=== PATIENT | female | born 1945 | race Caucasian/White ===

== ENCOUNTER → 2019-03-26 | Outpatient (CLI) | payer MEDICARE ==
[~2019-03-26] MED LIST: ALPR0.5T PO; ASPI-515 PO; ASPI-650 PO; ATOR40TA78 PO; B&C/1TAB2 PO; CHOL2000 PO; CHOL200074 PO; CRAN500T2 PO; CYAN1TAB29 PO; GLUC15006 PO; INSU100C5 SQ-INSULIN; INSU100I32 IM; LANS30CA PO; LOSA1TAB19 PO; LOSA50TA14 PO; MAGN300C PO; MAGN400T36 PO; METO25TA91 PO; MULT-658 PO; NITR0.4T28 SL; OMEG-133 PO; OMEG-157 PO; OMEG1CAP23 PO; ST.300CA PO; TICA90TA PO; TURM538C PO; UBID100C24 PO; VITA1TAB68 PO; ZOLP10TA5 PO
== END | disposition home or self-care (01) ==
LOC: CVU 10:22
PROVIDERS: ATTEND Internal Medicine Cardiovascular Disease
DX: I65.23 Occlusion and stenosis of bilateral carotid arteries (principal); E78.5 Hyperlipidemia, unspecified; I10 Essential (primary) hypertension; E10.9 Type 1 diabetes mellitus without complications
CPT/HCPCS: 93880

== ENCOUNTER 2020-04-05 09:34 | Day surgery (SDC) | payer MEDICARE ==
[~2020-04-05] VITALS: Ht 157.5 cm; Wt 60.0 kg
[2020-04-05] MEDS ORDERED: SODIUM CHLORIDE 0.9% 1,000 ML IV SCH ×2 (09:44→12:44)
[2020-04-05] MEDS ORDERED: CLOPIDOGREL 75 MG TABLET PO ONE (10:00)
[2020-04-05 10:20] VITALS: BP 145/62
[2020-04-05] MEDS ORDERED: ISOS30TA8 PO (10:25)
[2020-04-05 10:26] LABS: BASOPHILS # (AUTO) 0.02 x10^3/uL (0-0.1); BASOPHILS % (AUTO) 0 % (0-1); EOSINOPHILS # (AUTO) 0.06 x10^3/uL (0-0.4); EOSINOPHILS % (AUTO) 1 % (1-7); LYMPHOCYTES % (AUTO) 19 % (22-44); MD NO; MEAN CORPUSCULAR HEMOGLOBIN 33.4 pg (27.0-34.8); MEAN CORPUSCULAR HGB CONC 32.8 g/dL (32.4-35.8); MEAN CORPUSCULAR VOLUME 101.7 fL (80-100); MEAN PLATELET VOLUME 9.2 fL (7.4-10.4); MONOCYTES # (AUTO) 0.39 x10^3/uL (0.2-0.8); MONOCYTES % (AUTO) 7 % (2-9); NEUTROPHILS # (AUTO) 4.38 x10^3/uL (1.8-6.8); NEUTROPHILS % (AUTO) 74 % (42-75); PLATELET COUNT 197 x10^3/uL (130-400); RED BLOOD COUNT 3.45 x10^6/uL (3.82-5.3); RED CELL DISTRIBUTION WIDTH 13.6 % (9.6-15.2)
[2020-04-05] MEDS ORDERED: INSU100I13 SC (10:28)
[2020-04-05] MEDS ORDERED: ASPI-496 PO (10:29)
[2020-04-05] MEDS ORDERED: CIPR500T87 PO (10:34)
[2020-04-05] MEDS ORDERED: ESTR42.58 SQ (10:36)
[2020-04-05 10:37] LABS: ANION GAP 6 mmol/L (5-15); CHLORIDE 109 mmol/L (98-107)
[2020-04-05] MEDS ORDERED: LANS15CA5 PO (10:37)
[2020-04-05 10:38] LABS: CREATININE 1.23 mg/dL (0.55-1.02)
[2020-04-05] MEDS ORDERED: TICAGRELOR 90 MG TABLET ONE (10:49)
[2020-04-05] MEDS ORDERED: VERAPAMIL 2.5 MG/ML, 2ML ONE (10:49)
[2020-04-05] MEDS ORDERED: LIDOCAINE-MPF 1%, 5ML ONE (10:49)
[2020-04-05] MEDS ORDERED: FENTANYL PF 100 MCG/2ML ONE (10:49)
[2020-04-05] MEDS ORDERED: MIDAZOLAM 1 MG/ML, 5ML ONE (10:49)
[2020-04-05] MEDS ORDERED: HEPARIN 1,000 UNITS/ML, 10ML ONE (10:49)
[2020-04-05] MEDS ORDERED: BIVALIRUDIN 250 MG ONE (10:49)
== END 2020-04-05 14:10 | disposition home or self-care (01) ==
LOC: CACL 09:34
PROVIDERS: ATTEND Internal Medicine Cardiovascular Disease
DX: R93.1 Abnormal findings on diagnostic imaging of heart and coronary circulation (principal); I25.10 Atherosclerotic heart disease of native coronary artery without angina pectoris; E78.5 Hyperlipidemia, unspecified; I12.9 Hypertensive chronic kidney disease with stage 1 through stage 4 chronic kidney disease, or unspecified chronic kidney disease; E10.22 Type 1 diabetes mellitus with diabetic chronic kidney disease; N18.3 Chronic kidney disease, stage 3 (moderate); K21.9 Gastro-esophageal reflux disease without esophagitis; Z88.0 Allergy status to penicillin; Z88.5 Allergy status to narcotic agent; Z91.013 Allergy to seafood; Z91.048 Other nonmedicinal substance allergy status; Z79.4 Long term (current) use of insulin; Z79.899 Other long term (current) drug therapy; Z79.82 Long term (current) use of aspirin; Z72.89 Other problems related to lifestyle
CPT/HCPCS: 36415; 80048; 85025; 93458; 99156; C1769; C1894; J1644; J2250; J3010; Q9967; J0583